=== PATIENT | male | born 1950 | race Caucasian/White ===

== ENCOUNTER → 2017-02-27 | Outpatient (CLI) | payer BC ==
[~2017-02-27] MED LIST: ASPIRIN 32325 MG/TAB PO; FLOMAX0.4 MG PO; GLUCOSAMINE PO; IBUPROHM200 MG PO; MVI PO; OMEGA 3 FISH OIL PO
== END ==
LOC: COL.RAD 14:05
DX: R06.02 Shortness of breath (principal); R07.89 Other chest pain; R93.1 Abnormal findings on diagnostic imaging of heart and coronary circulation
CPT/HCPCS: Q9967

== ENCOUNTER → 2017-04-04 | Outpatient (CLI) | payer BC | LOC: COL.PUL 14:30 | DX: R05 Cough (principal) | CPT/HCPCS: J7674 ==

== ENCOUNTER → 2019-05-21 | Outpatient (CLI) | payer MEDICARE, BC | LOC: COL.RAD 08:05 | DX: I77.810 Thoracic aortic ectasia (principal) | CPT/HCPCS: Q9967 ==

== ENCOUNTER 2019-09-16 13:00 | Inpatient (IN) | payer MEDICARE, BC ==
[~2019-09-16] VITALS: Ht 182.9 cm; Wt 80.7 kg
[~2019-09-16 13:00] MED LIST changes: -ASPIRIN 32325 MG/TAB PO; +ASPIRIN 81M81 MG/TA2 PO
--- NOTE | 2019-09-16 15:55 | NUR ---
Pt brought to unit in wheelchair by staff. MONICA Fox orientee getting pt's weight. Introduced ourselves to pt.
[2019-09-16 16:00] VITALS: BP 140/59; PULSE 68; TEMP 99.2
--- NOTE | 2019-09-16 16:00 | NUR ---
ADMITTED TO ROOM 338 VIA WHEEL CHAIR FROM REGISTRATION. PATIENT REPORTS HIS WENT TO CAR TO GET PAPERWORK. ORIENTED TO ROOM VIA STAFF. CALL LIGHT WITHIN REACH.
[2019-09-16] MEDS ORDERED: PROAMATINE10 MG PO (17:10)
[2019-09-16] MEDS ORDERED: MAXZIDE-25MG TA1 TAB PO (17:12)
[2019-09-16] MEDS ORDERED: LIPITOR20 MG PO (17:13)
[2019-09-16] MEDS ORDERED: ROXICODONE 55 MG/TAB PO (17:24)
[2019-09-16] MEDS ORDERED: SENNA-S 50 MG-81 TAB PO ×2 (17:25→17:32)
[2019-09-16] MEDS ORDERED: VITAMIN D 1001000 IU PO (17:26)
[2019-09-16] MEDS ORDERED: TURMERIC500 MG PO (17:26)
[2019-09-16] MEDS ORDERED: MULTIPLE VITAMI1 CAP PO (17:27)
[2019-09-16 17:30] VITALS: BP 140/59; PULSE 68; TEMP 99.2
--- NOTE | 2019-09-16 17:44 | NUR ---
CONFIRMED WITH PATIENT TURMERIC NOT IN HOSPITAL FORMULARY AND WOULD HAVE TO HAVE HIS TURMERIC FROM HOME BROUGHT IN. PATIENT ELECTED TO NOT CONTINUE TO TAKE MED DURING THIS HOSPITAL STAY.
--- NOTE | 2019-09-16 18:40 | NUR ---
REPORT GIVEN TO NIGHT NURSE, PATIENT RESTING IN BED, PRESENT. CALL LIGHT WITHIN REACH.
--- NOTE | 2019-09-16 19:45 | NUR ---
Shift assessment complete. Patient ambulated to BR with gait belt/walker/assist x1. Had large BM. at bedside. Patient oriented x4. States gas pain in shoulders 11/07, prn tylenol given per pt request. Vision limited to right side. States he can only see spots. This is not a new problem, it is a result of his stroke. Denies further needs at this time. Will continue to monitor.
--- NOTE | 2019-09-17 00:53 | NUR ---
Patient ambulated to BR with gait belt/walker/assist x1. States pain 5/10 in back. Prn pain medication given per pt request. Denies further needs at this time. Will continue to monitor.
[2019-09-17 03:40] VITALS: BP 145/67; PULSE 76; TEMP 98.6
--- NOTE | 2019-09-17 03:46 | NUR ---
Patient in bed, awake. States pain is 5/10. Prn tylenol given. Also noted to be 87-91% on room air. 2L oxygen via NC applied. RT notified. Patient stated he wore oxygen occasionally when he was a patient at . He stated the oxygen also helped when he would ambulate with staff at . Will pass on to day shift RN. Denies further needs at this time. Will continue to monitor.
--- NOTE | 2019-09-17 04:45 | NUR ---
Patient in bed, appears very uncomfortable. States he would like to go for a walk. Ambulated around Surgical/IPR with walker/gait belt/assist x1. Tolerated very well, gait steady. Patient up in chair. Prn pain medication given prior to walk. Denies further needs at this time. Will continue to monitor.
--- NOTE | 2019-09-17 16:11 | NUR ---
KARIN met with the patient and the patient's , Dai (ph#[phone]), to complete initial intake, as the patient is new to [facility]. The patient lives in [place] with his . 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 He reports independence with ADLs and does not have any DME. The patient's PCP is Dr. Betty Mathews and he receives his medications at [facility]. He reports no difficulties obtaining his meds. The patient's advanced directives are in his chart. His DPOA-HC is his . KARIN then presented and discussed the Team Conference Note and reviewed the team's plan for a re-evaluation next week. The patient and his were in agreeance to this. A family meeting was scheduled on Sunday, 09/19, at 1300. KARIN informed the IPR Director. KARIN to continue to follow.
--- NOTE | 2019-09-17 17:50 | NUR ---
Patient resting in recliner at this time, call light in reach, chair alarm is on and is by his side. See new orders for Melatonin at HS for insomnia and Hydrocortisone cream for back rash per Dr. Tavarez. Patient received a suppository this evening and had a good bowel movement. Patient reporting pain to his chest and has been using his pillow for support when pushing to try to have a BM. Will continue to monitor.
[2019-09-17 18:18] VITALS: BP 127/67; PULSE 72; TEMP 98.4
--- NOTE | 2019-09-17 19:55 | NUR ---
Patient's brought in his laptop computer in a black leather bag with an extension chord. She also brought in a bible for him. Patient continues to have a left visual deficit and staff continues to monitor and instruct him to look to his left to become aware of those surrondings. Patient closes his eyes a lot due to his visual field deficit. Will continue to monitor.
--- NOTE | 2019-09-17 20:00 | NUR ---
SHIFT REPORT RECEIVED FROM CAROLA DIEZ. RN. PT SITTING IN RECLINER. ORIENTED X4. DEFICIT IN LT VISUAL FIELD. PT HAS SLOW THOUGHT PROCESS AT TIMES. HAVE TO CUE FOR NEXT STEP IN TASK. REQUEST MELATONIN FOR SLEEP. AT BEDSIDE. VERY SUPPORTIVE. CGA TO BR WITH WALKER. LT SIDE NEGLECT. RUNS WALKER INTO BR DOOR FRAME. VOIDS W/O DIFFICULTY. ABLE TO MANAGE TOILETING TASKS. RETURNS TO RECLINER. CHAIR ALARM SET. PT KEEPS EYES CLOSED MOST OF THE TIME.
--- NOTE | 2019-09-18 01:00 | NUR ---
PT NOT COMFORTABLE IN RECLINER. SCOOTED DOWN IN CHAIR. AIR MATTRESS PLACED ON BED. ASSISTED TO BR W/ WALKER. VOIDED.. NO INCONTINENCE. LT SIDED NEGLECT. DEFICIT IN LT VISUAL FIELD. SEES THREE FINGERS DIRECTLY IN FRONT OF HIM WHEN THERE WAS ACTUALLY FIVE. TO BED. NEEDS HEART PILLOW TO SPLINT STENUM WITH TRANSFER. NOW PT RELATES FEELS MUCH BETTER. CALL LIGHT IN REACH. BED ALARM SET.
--- NOTE | 2019-09-18 03:00 | NUR ---
PT TRYING TO GET OUT OF BED. ASSISTED PT TO BR WITH WALKER. WANTS TO KNOW WHERE HIS IS. WANTS TO GO HOME. PT TRIED TO CALL AND SHE DIDNT ANSWER. REMINDED PT TIME OF NIGHT AND REASSURED HIM SHE WOULD BE BACK IN THE MORNING. ASSISTED BACK TO BED. CALL LIGHT IN REACH. BED ALARM SET.
--- NOTE | 2019-09-18 03:25 | NUR ---
PT SLEEPING. NO RESP DISTRESS. PT WAS C/O EARLIER NOSE BURNING FROM O2. PT KEEPS TAKING IT OFF. NOTIFIED RT TO ADD HUMIDITY.
[2019-09-18 06:00] VITALS: BP 123/64; PULSE 67; TEMP 97.9
--- NOTE | 2019-09-18 09:23 | NUR ---
Spoke with patient's today and she reported that the confusion that her had last night might have been triggered by the Roxicodone. She reported that patient had issues with Tramadol causing hallucinations at one time when in ICU as well. Will report to physician. Patient requested Tylenol this morning instead of Arlene. Will continue to monitor.
--- NOTE | 2019-09-18 09:32 | NUR ---
First visit from the sales representative leather goods. No needs right now.
[2019-09-18 14:49] LABS: HEMATOCRIT 37.1 % (42.0-52.0); HEMOGLOBIN 12.3 g/dl (13.5-18.0); MEAN CELL VOLUME 90 fl (80.0-100.0); MEAN CORPUSCULAR HEMOGLOBIN 30 pg (27.0-31.0); MEAN CORPUSCULAR HGB CONC 33 g/dl (33.0-37.0); MEAN PLATELET VOLUME 9.2 fl (7.4-10.4); PLATELET COUNT 575 K/mm3 (130-400); RED BLOOD COUNT 4.14 M/mm3 (4.20-5.60); REDCELL DISTRIBUTION WIDTH-CV 12.4 % (11.5-14.5)
[2019-09-18 15:14] LABS: CALCIUM 9.1 mg/dL (8.4-10.2); CREATININE, serum 1.49 (0.66-1.25); MAGNESIUM 2.3 mg/dL (1.6-2.3); POTASSIUM 4.4 mmol/L (3.4-5.0)
[2019-09-18 15:32] LABS: BAND 9 % (0-10); EOSINOPHIL 6 % (0-4); METAMYELOCYTE 1 % (0-0); MYELOCYTE 1 % (0-0); NEUTROPHILS 57 % (42.0-75.2)
[2019-09-18 15:33] LABS: LYMPHOCYTE 18 % (20.0-51.0); PLATELET ESTIMATE INCREASED (NORMAL)
[2019-09-18 15:55] VITALS: BP 146/71; PULSE 66; TEMP 99.1
--- NOTE | 2019-09-18 20:30 | NUR ---
PT SITTING IN RECLINER. ATT HE BEDSIDE. PT CONTINUES WITH LT EYE VISUAL DEFICITS. SOMETIMES KEEPS EYES CLOSED. PT RELATES TYLENOL REALLY DIDNT HELP MUCH WITH LT RIB MUSCLE PAIN. REFUSED ROXICODONE AT THIS TIME. TOOK MELATONIN TONIGHT. ASSISTED TO WITH WALKER. LT SIDE NEGLECT. ABLE TO MANAGE OWN TOILETING TASKS. ASSISTED TO BED NOW. LEAVING FOR THE NIGHT. CALL LIGHT IN REACH BED ALARM SET.
--- NOTE | 2019-09-18 20:38 | NUR ---
Patient attended all therapies. OT was called and would be providing a slip proof piece of material to put under wheelchair cushion. Patient had some nausea today following his ST session. Dr. Tavarez saw patient today and discussed with both patient and about how working with vision therapy may trigger some nausea. They both voiced understanding. Patient played cards with his this afternoon and said that she would try to do more games like that with patient since it seems to help him with his thinking strategies. Patient very tired this evening after multiple visitors stopped by to see him. Currently resting in recliner at this time. Call light in reach, and alarm is on. Will continue to monitor. Reported off to night nurse.
[2019-09-19 05:44] VITALS: BP 109/56; PULSE 69; TEMP 98.5
--- NOTE | 2019-09-19 08:01 | NUR ---
REPORT RECEIVED FROM DEPARTURE CLERK NURSE, PATIENT ALREADY UP IN CHAIR WITH NO CONCERNS OR COMPLAINTS AT THAT TIME. CALL LIGHT/WATER WITHIN PATIENT'S REACH.
--- NOTE | 2019-09-19 10:10 | NUR ---
DENIES CHILLS/INCREASED PAIN TO LOW BACK, VOIDING WITHOUT PROBLEMS, INCISION AREAS CLEAR/NO EDEMA, NO FURTHER C/O LOOSE STOOLS. NO OTHER COMPLAINTS.
--- NOTE | 2019-09-19 10:18 | NUR ---
INFORMED DR ALVES, ONCALL HOSPITALIST, OF ELEVATED PLATELETS READING ([phone]), NO ORDERS GIVEN.
--- NOTE | 2019-09-19 13:19 | NUR ---
SW attended a family meeting with the patient and the patient's , Dai. Also present was IPR Director, PT, OT, & ST. IPR Director, Nayeli, stared by explaining the purpose of the meeting. PT/OT/ST then discussed the patient's progress. The patient and his report that their goal is for the patient to return home and hopefully by Thanksgiving. The patient's reports that she will be home with the patient at all times. The patient reports that he would like to keep on working on improving his reading while here. IPR Director reports that the team will re-eval the patient after the weekend for any tentative plans. The patient and his were in agreeance to this. All questions were answered by the team. SW to continue to follow.
--- NOTE | 2019-09-19 14:23 | NUR ---
Admission QIM scores were reviewed by the team. Code of 4 chosen for oral hygiene was determined by team discussion to be the most usual performance before interventions for this patient during the assessment period.--Nayeli Villegas, PD
--- NOTE | 2019-09-19 14:30 | NUR ---
PATIENT WORKING WITH PHYSICAL THERAPY WITH NO CURRENT COMPLAINTS.
--- NOTE | 2019-09-19 16:26 | NUR ---
INFORMED DR ALVES OF OTHER LABS, ORDERS GIVEN FOR CXR/UA/AM LABS. INFORMED OF PATIENT'S CURRENT STATUS OF NO CHILLING/INCISIONS CLEAR/NO PROBLEMS WITH VOIDING OR PASSING LOOSE STOOL.
[2019-09-19 16:48] VITALS: BP 125/61; PULSE 65; TEMP 97.5
--- NOTE | 2019-09-19 18:59 | NUR ---
REPORT GIVEN TO OFFICE CLERK ROUTINE NURSEWILLIAM. PATIENT UP IN WHEEL CHAIR, CALL LIGHT/WATER WITHIN REACH. PATIENT WITH NO OTHER NEEDS REPORTED.
[2019-09-19 19:46] LABS: COLLECTION METHOD CLEAN CATCH
[2019-09-19 19:53] LABS: PH 6 (5-8); SQUAMOUS EPITHELIAL 0-2 /hpf; URINE APPEARANCE Clear; URINE BACTERIA Rare /hpf; URINE BILIRUBIN Negative (NEGATIVE); URINE BLOOD Negative (NEGATIVE); URINE COLOR Yellow; URINE GLUCOSE Negative (NEGATIVE); URINE KETONE Negative (NEGATIVE); URINE LEUKOCYTE ESTERASE Negative (NEGATIVE); URINE NITRATE Negative (NEGATIVE); URINE PROTEIN(semi-quant) Negative (NEGATIVE); URINE RBC 0-2 /hpf; URINE UROBILINOGEN Negative (NEGATIVE); URINE WBC 0-2 /hpf
[2019-09-19 21:00] VITALS: BP 138/60; PULSE 72
--- NOTE | 2019-09-19 22:00 | NUR ---
HS fadumo coppola reviewed but refused to take at this time. Drowsy and falls asleep in wheel chair but declines moving to bed. Ambulated in hallway several times to surgical and back with nurse. Some left sided neglect and verbal cueing required. left for the night after patient ambulated. Patient is oriented x 4. VSS. Hand admitting coordinator strong and equal. Pupils DANAY. Requires nurse to repeat questions at times. At 2330, patient transferred self to bed. Chair alarm alarming and nurse in immediately. Reminded patient to call for assist up. Denies pain. SCD's applied.
--- NOTE | 2019-09-20 00:10 | NUR ---
Patient returned from the bathroom accompanied by PROFESSOR OF PRACTICE. Patient alert, more conversive. Denies pain.
--- NOTE | 2019-09-20 03:23 | NUR ---
Patient ambulated in hallway with nurse. Occasinal CGA and directional cueing to prevent patient going into empty rooms or running into items in hallway. Sits up in recliner.
--- NOTE | 2019-09-20 03:56 | NUR ---
PATIENT GIVEN TYLENOL FOR BETWEEN SHOULDER BLADES PAIN. SITS UP IN RECLINER AND ENCOURAGED IS AND PULLS 1250 X 10.
[2019-09-20 05:14] VITALS: BP 116/53; PULSE 72; TEMP 97.6
--- NOTE | 2019-09-20 05:39 | NUR ---
patient rests with eyes closed up in recliner following tylenol given earlier.
[2019-09-20 08:52] LABS: CALCIUM 9.7 mg/dL (8.4-10.2); CREATININE, serum 1.7 (0.66-1.25); POTASSIUM 4.8 mmol/L (3.4-5.0)
[2019-09-20 08:55] LABS: BASO # 0.1 (0.0-0.2); BASO % 0.9 % (0.0-2.0); EOS # 0.9 (0.0-0.7); EOS % 6.7 % (0-4.0); GRAN # 9.5 (1.4-6.5); GRAN % 74.3 % (42.2-75.2); HEMATOCRIT 37.9 % (42.0-52.0); HEMOGLOBIN 12.6 g/dl (13.5-18.0); LYMPH # 1.2 (1.2-3.4); LYMPH % 9.2 % (20.0-51.0); MEAN CELL VOLUME 89 fl (80.0-100.0); MEAN CORPUSCULAR HEMOGLOBIN 30 pg (27.0-31.0); MEAN CORPUSCULAR HGB CONC 33 g/dl (33.0-37.0); MEAN PLATELET VOLUME 9.2 fl (7.4-10.4); MONO # 0.9 (0.1-0.6); MONO % 7.3 % (1.7-9.3); PLATELET COUNT 621 K/mm3 (130-400); RED BLOOD COUNT 4.24 M/mm3 (4.20-5.60); REDCELL DISTRIBUTION WIDTH-CV 12.4 % (11.5-14.5)
--- NOTE | 2019-09-20 09:40 | NUR ---
Patient sitting up in chair this am. He is not in a very plesnant mood, not wanting to be bothered. Took am medications, refused sennokot. Did request tyelnol for pain. Ready for therapy
--- NOTE | 2019-09-20 14:42 | NUR ---
Patient sitting in chair. family & friends at bedside. He reports therapy went well this am. He did well with lunch, good appetite. Tylenol for back pain
[2019-09-20 16:49] VITALS: BP 114/63; PULSE 69; TEMP 98.3
--- NOTE | 2019-09-20 17:37 | NUR ---
Patient up ambulating halls with . Steady gait, poor vision. Tylenol for continued back pain.
--- NOTE | 2019-09-20 18:45 | NUR ---
Report received from Princess ANDERSON. Patients in visiting and requests patient take roxycodone and melatonin tonight to aid with back pain and sleep. Princess ANDERSON brought in Kpad and applied to patients back. going to walk with patient in hallway.
--- NOTE | 2019-09-20 20:00 | NUR ---
HS meds along with roxycodone reviewed and given. Patient sits up in recliner. Melatonin given prior to patients leaving for the night.
--- NOTE | 2019-09-20 22:00 | NUR ---
Patient rests in bed with eyes closed. Respirations with ease.
--- NOTE | 2019-09-21 01:04 | NUR ---
Patient awake and up to the bathroom with observation. Sits up in recliner. Reports back pain 10/10 and roxycodone only 2.5 mg given along with tylenol per patient request. Kpad placed to back.
--- NOTE | 2019-09-21 01:56 | NUR ---
Patient resting in recliner with eyes closed. Respirations with ease.
--- NOTE | 2019-09-21 02:55 | NUR ---
Patient awake and slid down in recliner. Assisted up in chair. States "yes" to he's been sleeping.
[2019-09-21 05:38] VITALS: BP 148/72; PULSE 69; TEMP 99
--- NOTE | 2019-09-21 05:51 | NUR ---
Patient up to the bathroom standby assist and initially disoriented to time but alert to person,place, month and year. Hand bias binding cutter strong and equal. VSS. Reports 10/10 pain to between shoulder blades constant pain. States has had this high of pain off and on since surgery. Kpad has been to back through the night. Affect flat/no grimacing. Respirations even and nonlabored. Denies chest pain or radiating pain. Denies shortness of breath. 1/2 of roxycodone repeated as too early to give 5mg and tylenol given. Will monitor. Patient has been resting in chair since 0200. Rests back in bed at this time.
--- NOTE | 2019-09-21 06:12 | NUR ---
Dr. Shin notified of patients rating 10/10 pain in between shoulder blades and area of pain has been ongoing since admit rating from 1-5/10 and at times 8/10 on pain scale. Reported no shortness of breath or radiating pain and sx history. Reviewed pain meds given. No new orders at this time.
--- NOTE | 2019-09-21 06:30 | NUR ---
Patient now rests calmly in bed with eyes closed. Respirations with ease.
--- NOTE | 2019-09-21 10:21 | NUR ---
Patient was seen by Dr. Shin this morning and patient reported that pain was at 2/10. Patient slept in this morning, but did finaly awaken and eat all his breakfast. He is currently sittin in recliner with by his side, call light in reach and alarm on. Patient was complaining of back pain where his back bones Lye against the back of the recliner. This nurse placed a egg crate cushion over chair to try to eliminate pain to that area. Will continue to monitor.
--- NOTE | 2019-09-21 13:00 | NUR ---
Patient now eating lunch as he wanted to sleep a little longer. He is now eating lunch with his by his side. Denies questions at this time.
[2019-09-21 17:18] VITALS: BP 118/55; PULSE 74; TEMP 98.8
--- NOTE | 2019-09-21 19:38 | NUR ---
Patient had many visitors this morning and afternoon and is currently sound asleep in his recliner. Patient's is by his side. Patient stated, "I will some day ride a bike again I know it." took patient for a few walks around 3rd floor for some exercise and patient tolerated very well. He denied questions this shift. Will continue to monitor. Reported off to night nurse.
--- NOTE | 2019-09-21 21:44 | NUR ---
pt doing ok. sitting up in chair. does c/o pain in shoulders. prn pain med given. no other concerns at this time. call light within reach, will continue to monitor
--- NOTE | 2019-09-22 03:06 | NUR ---
Pt resting in bed watching tv. Has gone to bathroom once, standby assist. No complaints at this time. Call light within reach, will continue to monitor
[2019-09-22 03:27] VITALS: BP 128/61; PULSE 65; TEMP 98.1
[2019-09-22 07:34] LABS: BASO # 0.1 (0.0-0.2); BASO % 0.8 % (0.0-2.0); EOS # 1.2 (0.0-0.7); EOS % 8.7 % (0-4.0); GRAN # 9.7 (1.4-6.5); GRAN % 68.6 % (42.2-75.2); HEMATOCRIT 39.8 % (42.0-52.0); HEMOGLOBIN 13.4 g/dl (13.5-18.0); LYMPH # 1.8 (1.2-3.4); LYMPH % 12.9 % (20.0-51.0); MEAN CELL VOLUME 88 fl (80.0-100.0); MEAN CORPUSCULAR HEMOGLOBIN 30 pg (27.0-31.0); MEAN CORPUSCULAR HGB CONC 34 g/dl (33.0-37.0); MEAN PLATELET VOLUME 8.3 fl (7.4-10.4); MONO # 1.1 (0.1-0.6); PLATELET COUNT 665 K/mm3 (130-400); REDCELL DISTRIBUTION WIDTH-CV 12.5 % (11.5-14.5)
[2019-09-22 07:47] LABS: CALCIUM 9.6 mg/dL (8.4-10.2); CREATININE, serum 1.79 (0.66-1.25); MAGNESIUM 2.1 mg/dL (1.6-2.3); POTASSIUM 4.7 mmol/L (3.4-5.0)
--- NOTE | 2019-09-22 08:28 | NUR ---
Bedside report from MONICA Ceballos. Pt c/o shoulder blade/back and sternal pain, reviewed meds and informed pt about tylenol available, alvarado can be given at 0920, agreeable. Pt asst to chair by Lin for breakfast, with gait belt while hugging heart pillow. BLE elevated in chair. Pt keeps eyes closed. Took pills whole, all at once, with thin liquids. A&O, pleasantly cooperative.
--- NOTE | 2019-09-22 08:57 | NUR ---
YISSEL Robin reports applying cortisone cream after pt out of shower. Back has generalized diffuse rash with pink punctate spots.
--- NOTE | 2019-09-22 13:04 | NUR ---
Pt denies needing any tylenol prior to therapy.
--- NOTE | 2019-09-22 14:35 | NUR ---
Called pharmacy to request proamatine, not stocked on IPR nor surg
[2019-09-22 15:05] VITALS: BP 113/43; PULSE 65; TEMP 97.3
--- NOTE | 2019-09-22 20:44 | NUR ---
Bedside report to MONICA Mancuso. amb pt in room/danielle with gait belt, pt cont to c/o pain to shoulders thru back and chest, Dr. Tavarez aware. Informed ARDEN Tyler Director that pt's pharmacy is closed on , planned day of discharge, and pt wants to leave Sunday, or at least needs his meds picked up from his pharm on Sunday. Arlene for pain, colace and rehab cocktail given for no BM in two days per pt. Pt in chair with alarm on, call lt in reach. Cont to have left visual field deficits. Pleasant, alert & O, closes eyes frequently while talking.
--- NOTE | 2019-09-23 04:08 | NUR ---
Patient resting well throughout the night. Pain medication given right before bedtime. Noted to be effective. Incisions to chest remain CDI. at bedside for med pass. Patient up to the bathroom with SBA from staff. Utilizes walker and gait belt. Patient denies any further needs. Will continue to monitor.
[2019-09-23 05:11] VITALS: BP 113/51; PULSE 68; TEMP 98.3
--- NOTE | 2019-09-23 08:51 | NUR ---
Pt doing ok. Alert and oriented with VSS. Sitting in chair with breakfast. Able to feed self. C/o feel tired this AM. No complaints of pain as of now. No other concerns at this time. Call light within reach, will continue to monitor
[2019-09-23 16:18] VITALS: BP 129/63; PULSE 66; TEMP 98.2
--- NOTE | 2019-09-23 19:04 | NUR ---
REPORT RECEIVED FROM DAY SHIFT NURSE. PATIENT SITTING UP IN CHAIR WITH CALL LIGHT/WATER PITCHER WITHIN REACH.
--- NOTE | 2019-09-23 22:42 | NUR ---
RESTING IN BED WITH EYES CLOSED, RESPIRATIONS NON LABORED.
--- NOTE | 2019-09-23 22:43 | NUR ---
CALL LIGHT WITHIN PATIENT'S REACH.
--- NOTE | 2019-09-23 23:25 | NUR ---
RESTING WITH EYES CLOSED WITH UNRESTRICTED BREATHING OBSERVED.
--- NOTE | 2019-09-23 23:27 | NUR ---
REPOSITIONED SLIGHTLY TO LEFT SIDE.
--- NOTE | 2019-09-24 02:09 | NUR ---
AWAKE, SITTING UP ON COUCH SEATING WITH NO VERBALIZED COMPLAINTS OBSERVED.
[2019-09-24 04:25] VITALS: BP 138/62; PULSE 69; TEMP 98.6
--- NOTE | 2019-09-24 04:30 | NUR ---
UP IN ROOM AFTER GOING TO BATHROOM, GAIT STEADY, ICE WATER REPLACED AND DENIES ANY FURTHER NEEDS OR COMPLAINTS. CALL LIGHT WITHIN REACH. SITTING UP IN CHAIR.
--- NOTE | 2019-09-24 08:51 | NUR ---
Patient resting in recliner at this time, call light in reach with alarm on. Patient reporting pain to his back and given prn pain meds. Ate well this morning.
[2019-09-24 12:20] VITALS: BP 107/61
--- NOTE | 2019-09-24 12:37 | NUR ---
Patient resting in recliner with by his side. Reviewed upcoming doctor appointments with and . Denied any questions at this time.
[2019-09-24] MEDS ORDERED: NORVASC 5MG5 MG/TAB PO (14:10)
[2019-09-24] MEDS ORDERED: HYDROCORTISON28.4 GM TP (14:11)
[2019-09-24] MEDS ORDERED: LEVAQUIN 750MG750 M1 PO (14:12)
[2019-09-24] MEDS ORDERED: PERCOCET 325 MG1 TA2 PO (14:13)
--- NOTE | 2019-09-24 14:30 | NUR ---
Patient Health Summary, Discharge Summary, and Home Meds printed and reviewed with patient and . Stressed importance of follow up appointments. Called prescriptions for Midodrine and Atorvastatin to pharmacy of choice. Belongings gathered by THOM/Kayla including glasses, bible, laptop, blackback, Ext cord, cell phone, welder fitter arc, IS, Cap, ring band gold toned, street clothes and shoes. Patient transported via wheelchair by THOM/Kayla and seatbelted for ride home with . Patient and denied any questions.
--- NOTE | 2019-09-24 15:15 | NUR ---
Discharge QIM scores were reviewed by the team. Code of 6 chosen for putting on/taking off footwear was determined by team discussion to be the most usual performance for this patient during the assessment period.--PD Minda
--- NOTE | 2019-09-24 16:18 | NUR ---
Surgical Technologist met with patient and reviewed IM. Patient understands rights and provided signature. KARIN placed original in chart and provided patient a copy. Patient to discharge today. KARIN faxed orders to [facility] as patient will continue with outpatient PT/OT.
== END 2019-09-24 14:33 | disposition home or self-care (01) | DRG 56 ==
PROVIDERS: Student in an Organized Health Care Education/Training Program; ADMIT Internal Medicine
DX: G81.94 Hemiplegia, unspecified affecting left nondominant side (principal); I63.9 Cerebral infarction, unspecified; J18.9 Pneumonia, unspecified organism; I25.10 Atherosclerotic heart disease of native coronary artery without angina pectoris; N18.9 Chronic kidney disease, unspecified; D63.1 Anemia in chronic kidney disease; E78.5 Hyperlipidemia, unspecified; M19.90 Unspecified osteoarthritis, unspecified site; D72.829 Elevated white blood cell count, unspecified; R53.81 Other malaise; Z79.82 Long term (current) use of aspirin; Z95.1 Presence of aortocoronary bypass graft; Z95.2 Presence of prosthetic heart valve
CPT/HCPCS: 99222-AI; 99232-AI; 99233-AI; 99239; J1644

== ENCOUNTER 2019-10-06 21:59 | Emergency (ER) | payer MEDICARE, BC ==
[~2019-10-06] VITALS: Ht 180.3 cm; Wt 80.5 kg
[~2019-10-06 21:59] MED LIST changes: +HYDROCORTISON28.4 GM TP; +LEVAQUIN 750MG750 M1 PO; +LIPITOR20 MG PO; +MAXZIDE-25MG TA1 TAB PO; +MULTIPLE VITAMI1 CAP PO; +NORVASC 5MG5 MG/TAB PO; +PERCOCET 325 MG1 TA2 PO; +PROAMATINE10 MG PO; +ROXICODONE 55 MG/TAB PO; +SENNA-S 50 MG-81 TAB PO; +TURMERIC500 MG PO; +VITAMIN D 1001000 IU PO
[2019-10-06 22:34] LABS: BASO # 0.1 (0.0-0.2); BASO % 1.2 % (0.0-2.0); EOS # 0.8 (0.0-0.7); EOS % 8.2 % (0-4.0); GRAN # 6.5 (1.4-6.5); GRAN % 68.1 % (42.2-75.2); HEMOGLOBIN 12.2 g/dl (13.5-18.0); LYMPH # 1.2 (1.2-3.4); LYMPH % 12.8 % (20.0-51.0); MEAN CELL VOLUME 88 fl (80.0-100.0); MEAN CORPUSCULAR HEMOGLOBIN 29 pg (27.0-31.0); MEAN CORPUSCULAR HGB CONC 33 g/dl (33.0-37.0); MONO # 0.9 (0.1-0.6); MONO % 9.2 % (1.7-9.3); PLATELET COUNT 444 K/mm3 (130-400); RED BLOOD COUNT 4.17 M/mm3 (4.20-5.60); REDCELL DISTRIBUTION WIDTH-CV 12.5 % (11.5-14.5)
[2019-10-06 22:39] LABS: HEMATOCRIT 36.5 % (42.0-52.0)
[2019-10-06 22:47] LABS: ALBUMIN 3.8 gm/dL (3.5-5.0); BILIRUBIN,TOTAL 0.4 mg/dL (0.0-1.0); CREATININE, serum 1.61 (0.66-1.25); POTASSIUM 4.3 mmol/L (3.4-5.0); TOTAL PROTEIN 7.8 gm/dL (6.4-8.2)
[2019-10-06 23:01] LABS: C-REACTIVE PROTEIN 13.5 mg/dL (0.0-0.9)
[2019-10-06 23:47] VITALS: TEMP 100
[2019-10-07 00:08] LABS: COLLECTION METHOD CLEAN CATCH
[2019-10-07 00:14] LABS: MUCOUS Present /lpf; PH 5 (5-8); SQUAMOUS EPITHELIAL 0-2 /hpf; URINE APPEARANCE Clear; URINE BACTERIA None Seen /hpf; URINE BILIRUBIN Negative (NEGATIVE); URINE BLOOD Negative (NEGATIVE); URINE COLOR Yellow; URINE GLUCOSE Negative (NEGATIVE); URINE KETONE Negative (NEGATIVE); URINE LEUKOCYTE ESTERASE Trace (NEGATIVE); URINE NITRATE Negative (NEGATIVE); URINE PROTEIN(semi-quant) Negative (NEGATIVE); URINE RBC 0-2 /hpf; URINE UROBILINOGEN Negative (NEGATIVE)
[2019-10-07 01:45] VITALS: BP 106/66; PULSE 64
== END 2019-10-07 02:05 | disposition short-term general hospital (02) ==
LOC: COL.ER 21:59
PROVIDERS: Emergency Medicine
DX: R50.9 Fever, unspecified (principal); Z79.82 Long term (current) use of aspirin
CPT/HCPCS: J1956; J7030

== ENCOUNTER 2019-11-10 15:42 | Outpatient (RCR) | payer MEDICARE, BC | END 2019-11-26 15:31 | disposition still patient (30) | LOC: COL.CR 15:42 | DX: Z48.812 Encounter for surgical aftercare following surgery on the circulatory system (principal); Z95.1 Presence of aortocoronary bypass graft; I25.10 Atherosclerotic heart disease of native coronary artery without angina pectoris; I08.2 Rheumatic disorders of both aortic and tricuspid valves; I71.2 Thoracic aortic aneurysm, without rupture ==

== ENCOUNTER 2019-12-30 09:45 | Outpatient (RCR) | payer MEDICARE, BC | END 2019-12-31 | disposition still patient (30) | LOC: WSST | DX: I63.9 Cerebral infarction, unspecified (principal) ==

== ENCOUNTER → 2020-02-13 | Outpatient (CLI) | payer MEDICARE, BC ==
[~2020-02-13] MED LIST changes: +LUTEIN 15 MG-0.1 SGL PO
== END ==
LOC: COL.RAD 11:24
DX: S21.101A Unspecified open wound of right front wall of thorax without penetration into thoracic cavity, initial encounter (principal); T14.8XXD Other injury of unspecified body region, subsequent encounter; I77.810 Thoracic aortic ectasia; J90 Pleural effusion, not elsewhere classified; Z95.1 Presence of aortocoronary bypass graft; Z95.2 Presence of prosthetic heart valve

== ENCOUNTER → 2023-02-21 | Outpatient (CLI) | payer MEDICARE, BC ==
[~2023-02-21] MED LIST changes: +ASPIRIN E.C. 8181 MG PO; +CRESTOR 10MG10 MG PO; +CURCUMIN95% PO; +GINGER ROOT EX250 MG PO; +MAGNESIUM250 M1 PO; +MASON NATURAL2000 IU PO; +OCUVITE1 TA1 PO; +ONE DAILY ESSE0.5 MG PO; +PHARMASSURE ZIN50 MG PO; +QUERCETIN500 M1 PO
== END ==
LOC: COL.PUL 11:13
DX: R06.02 Shortness of breath (principal); R93.89 Abnormal findings on diagnostic imaging of other specified body structures